=== PATIENT | female | born 1990 | race Caucasian/White ===

== ENCOUNTER 2018-05-18 20:15 | Emergency (ER) | payer BC ==
--- NOTE | 2018-05-18 20:31 | EDM.PDOC ---
ED HPI GENERAL MEDICAL PROBLEM - General Chief Complaint: General Stated Complaint: POSSIBLE DISLOCATED SHOULDER Time Seen by Provider: 05/18/18 20:15 Source of Information: Reports: Patient, RN History Limitations: Reports: No Limitations - History of Present Illness INITIAL COMMENTS - FREE TEXT/NARRATIVE: 27 yr female presents to ER with pain to left shoulder. Possible dislocation. States playing volleyball in sand and collided with another person and then slid into ground. States no known allergies to medications. is local PT here and is supporting pt. Will get x-ray of shoulder. - Related Data Allergies Allergy/AdvReac Type Severity Reaction Status Date / Time apples Allergy Difficulty Uncoded 05/18/18 21:18 Breathing cherries Allergy Difficulty Uncoded 05/18/18 21:18 Breathing Home Meds: Home Meds NK [No Known Home Meds] 05/18/18 [History] ED ROS GENERAL - Review of Systems Review Of Systems: See Below Constitutional: Reports: No Symptoms HEENT: Reports: No Symptoms Respiratory: Reports: No Symptoms Cardiovascular: Reports: No Symptoms GI/Abdominal: Reports: No Symptoms Musculoskeletal: Reports: Shoulder Pain Skin: Reports: Rash (plant based allergic reaction) Neurological: Reports: Dizziness, Other (States intermittent tingling/numbness to fingers.). Denies: Headache Psychiatric: Reports: No Symptoms Hematologic/Lymphatic: Reports: No Symptoms Immunologic: Reports: No Symptoms ED EXAM, GENERAL - Physical Exam Exam: See Below Exam Limited By: No Limitations General Appearance: Alert, Mild Distress Ears: Hearing Grossly Normal Nose: Normal Inspection Throat/Mouth: Normal Inspection, Normal Lips, Normal Voice, No Airway Compromise Head: Atraumatic, Normocephalic Neck: Normal Inspection, Supple, Non-Tender Respiratory/Chest: No Respiratory Distress, Lungs Clear, Normal Breath Sounds Cardiovascular: Regular Rate, Rhythm GI/Abdominal: Soft, Non-Tender Back Exam: Normal Inspection Extremities: Normal Capillary Refill, Limited Range of Motion, Other (Left shoulder pain, dislocated from injury with playing volleyball) Neurological: Alert, Oriented, Normal Cognition Course - Orders/Labs/Meds Orders: Active Orders 24 hr Category Date Time Status Shoulder 1V Lt [CR] Stat Exams 05/18/18 20:32 Ordered HYDROmorphone [Dilaudid] Med 05/18/18 20:34 Ordered 1 mg IVPUSH Q2H PRN Ketorolac [Toradol] Med 05/18/18 20:30 Ordered 30 mg IM Q6H Sodium Chloride 0.9% [Saline Flush] Med 05/18/18 22:04 Ordered 10 ml FLUSH ASDIRECTED PRN Saline Lock Insert [OM.PC] Routine Oth 05/18/18 22:04 Ordered Medication Orders Hydromorphone HCl (Dilaudid) 1 mg IVPUSH Q2H PRN PRN Reason: Pain Ketorolac Tromethamine (Toradol) 30 mg IM Q6H LATOYA Stop: 05/23/18 20:25 Sodium Chloride (Saline Flush) 10 ml FLUSH ASDIRECTED PRN PRN Reason: Keep Vein Open Meds: Medications Generic Name Dose Route Start Last Admin Trade Name Freq PRN Reason Stop Dose Admin Hydromorphone HCl 1 mg 05/18/18 20:34 Dilaudid IVPUSH Q2H PRN Pain Ketorolac Tromethamine 30 mg 05/18/18 20:30 Toradol IM 05/23/18 20:25 Q6H LATOYA Sodium Chloride 10 ml 05/18/18 22:04 Saline Flush FLUSH ASDIRECTED PRN Keep Vein Open Discontinued Medications Generic Name Dose Route Start Last Admin Trade Name Freq PRN Reason Stop Dose Admin Diazepam 5 mg 05/18/18 22:03 Valium. PO 05/18/18 22:04 ONETIME ONE Oxycodone HCl 10 mg 05/18/18 22:03 Oxycodone PO 05/18/18 22:04 ONETIME ONE - Re-Assessments/Exams Free Text/Narrative Re-Assessment/Exam: 05/18/18 22:10 Toradol 30 mg IM given for relief of pain. is here with her and supporting her. Dr Jacobsen contacted. Attempt at IV start and unable. Diazapam and oxycodone PO given to pt. Dr Jacobsen injected Lidocaine 1% 10cc into left shoulder. Ice was applied to neck and to shoulder. Dr Jacobsen was able to rotate arm and shoulder dislocation corrected and popped into place. X- ray completed and verified shoulder in correct placement. Sensation improved to fingers and hand, moves hands freely. No problems with tingling or numbness. Sling applied to left arm and shoulder for support. Rx for Percocet given for 1-2 tablets every 4-6 hour as needed for relief of pain. Pt pain much improved. Pt discharged to care of . Recommend alternating Percocet and Ibuprofen for relief of pain. Departure - Departure Time of Disposition: 21:40 Disposition: Home, Self-Care 01 Condition: Good Clinical Impression: Shoulder dislocation, Shoulder pain - Discharge Information Instructions: Shoulder Dislocation, Acetaminophen; Oxycodone capsules Forms: ED Department Discharge Care Plan Goals: Use Ice or heat as tolerated to area. Do exercises as demonstrated by Dr. Jacobsen. Wear sling as necessary. Take percocet 1 or 2 every 4 hours as needed for pain. - My Orders Last 24 Hours: My Active Orders 05/18/18 20:30 Ketorolac [Toradol] 30 mg IM Q6H 05/18/18 20:32 Shoulder 1V Lt [CR] Stat 05/18/18 20:34 HYDROmorphone [Dilaudid] 1 mg IVPUSH Q2H PRN 05/18/18 22:04 Sodium Chloride 0.9% [Saline Flush] 10 ml FLUSH ASDIRECTED PRN Saline Lock Insert [OM.PC] Routine - Assessment/Plan Last 24 Hours: My Active Orders 05/18/18 20:30 Ketorolac [Toradol] 30 mg IM Q6H 05/18/18 20:32 Shoulder 1V Lt [CR] Stat 05/18/18 20:34 HYDROmorphone [Dilaudid] 1 mg IVPUSH Q2H PRN 05/18/18 22:04 Sodium Chloride 0.9% [Saline Flush] 10 ml FLUSH ASDIRECTED PRN Saline Lock Insert [OM.PC] Routine
[2018-05-18] MEDS: oxyCODONE 5 MG Tab PO ONE (20:45)
[2018-05-18] MEDS: Diazepam 5 MG Tab PO ONE (20:45)
[2018-05-18] MEDS: HYDROmorphone 2 MG/ML Syringe IVPUSH PRN (21:03)
[2018-05-18] MEDS ORDERED: Sodium Chloride 0.9% 10 ML Syringe FLUSH PRN (22:04)
[2018-05-18] MEDS: Ketorolac 60 MG/2 ML SDV IM SCH (23:19)
--- NOTE | 2018-05-19 10:50 | CR ---
LEFT SHOULDER, 05/18/18 A single AP view was performed. No abnormalities noted. It is, however, inadequate to evaluate for traumatic injury. Complete study is recommended. [id number] [facility]
== END 2018-05-19 01:24 | disposition home or self-care (01) ==
LOC: LB.ED 20:15
DX: S43.005A Unspecified dislocation of left shoulder joint, initial encounter (principal); W03.XXXA Other fall on same level due to collision with another person, initial encounter; Y93.68 Activity, volleyball (beach) (court); Z91.018 Allergy to other foods
CPT/HCPCS: 23650; 73020-LT; 96374; 99283-25; A9270-GY; J1170; J1885

== ENCOUNTER 2022-01-04 16:02 | Emergency (ER) | payer BC ==
[2022-01-04] MEDS ORDERED: LORazepam 2 MG/ML SDV IM ONE (16:26)
[2022-01-04] MEDS ORDERED: Diphtheria,Pertussis(Acell),Tetanus Vaccine 0.5 ML SDV IM ONE (16:31)
[2022-01-04] MEDS ORDERED: Orphenadrine 60 MG/2 ML Inj IM ONE (16:57)
[2022-01-04] MEDS ORDERED: Orphenadrine 60 MG/2 ML Inj ONE (17:09)
[2022-01-04] MEDS ORDERED: cefTRIAXone 1 GM Vial IM ONE (17:16)
[2022-01-04] MEDS ORDERED: traMADol 50 MG Tab ONE (17:30)
[2022-01-04] MEDS ORDERED: cefTRIAXone 1 GM Vial ONE (17:31)
== END 2022-01-04 17:47 | disposition home or self-care (01) ==
LOC: LB.ED 16:02
DX: S81.012A Laceration without foreign body, left knee, initial encounter (principal); Z91.018 Allergy to other foods; Z23 Encounter for immunization; W26.8XXA Contact with other sharp object(s), not elsewhere classified, initial encounter
CPT/HCPCS: 12002; 90471; 90715; 96372; 99282-25; A9270-GY; J0696; J2060; J2360